=== PATIENT | male | born 1950 | race Caucasian/White ===

== ENCOUNTER 2024-11-23 20:53 | Emergency (ER) | payer OTHER ==
[~2024-11-23] VITALS: Ht 165.1 cm; Wt 70.0 kg
[2024-11-23 20:57] VITALS: TEMP 37.1; O2SAT 96
[2024-11-23] MEDS: SODIUM CHLORIDE 0.9% 1,000 ML IV ONE (21:15)
[2024-11-23 22:27] LABS: HEMATOCRIT. 33.2 % (42.0-52.0); HEMOGLOBIN. 11.0 g/dL (14.0-18.0); MEAN PLATELET VOLUME 7.2 fl (7.4-10.4); PLATELET 213 x1000/uL (130-400); RED BLOOD CELL COUNT 3.72 mill/uL (4.7-6.1); RED CELL DISTRIBUTION WIDTH 15.5 % (11.6-14.6)
[2024-11-23 22:43] LABS: CREATININE 1.7 mg/dL (0.6-1.3); ETHANOL BLOOD < 10 mg/dL (<10); UREA NITROGEN BLOOD 25 mg/dL (9-23)
[2024-11-23 22:45] LABS: ASPARTATE AMINOTRANSFERASE 48 IU/L (<34); BILIRUBIN DIRECT 0.1 mg/dL (<=3.0); BILIRUBIN TOTAL 0.4 mg/dL (0.1-1.0); PROTEIN TOTAL 7.4 g/dL (6.0-8.3)
[2024-11-23 22:49] LABS: LYMPHOCYTES % MANUAL 7.0 % (20.0-50.0); MONOCYTES % MANUAL 6.0 % (2.0-8.0); NEUTROPHILS % MANUAL 87.0 % (45.0-75.0); PLATELET ESTIMATE NORMAL
[2024-11-24] MEDS ORDERED: PIPERACILLIN/TAZO 3.375G/50ML 50 ML IV NR
[2024-11-24 01:31] VITALS: BP 166/71; PULSE 63; RESP 22; O2SAT 95
== END 2024-11-24 01:49 | disposition short-term general hospital (02) ==
LOC: ER 20:53 → CMPBEDREQ 11-25 07:16
DX: G93.41 Metabolic encephalopathy (principal); E87.20 Acidosis, unspecified; E11.9 Type 2 diabetes mellitus without complications; I10 Essential (primary) hypertension; Z86.73 Personal history of transient ischemic attack (TIA), and cerebral infarction without residual deficits
CPT/HCPCS: 80076; 80048; 82010; 80320; 82140; 83605 ×2; 85025; 36415; 71045; 70450; 96360; 99285; J7030; G0480